=== PATIENT | male | born 2000 | race Caucasian/White ===

== ENCOUNTER 2023-02-12 15:23 | Outpatient (OUT) | payer OTHER, SELFPAY ==
--- NOTE | 2023-02-12 15:40 | CT_ITS ---
The [address] [address] Patient Name: JASPREET HART MRN: [id number] date: 2000 Sex: M Assigned Patient Location: CT Current Patient Location: CT Accession/Order Number: [id number] Exam Date: 02/12/2023 15:40 Report Date: 02/12/2023 16:23 At the request of: MARBELLA DIETZ Procedure: CT abdomen pelvis wo con EXAM: CT abdomen pelvis wo con HISTORY: LOWE ABDOMINAL PAOIN R10.30 COMPARISON: None. TECHNIQUE: Axial CT images were obtained of the abdomen and pelvis without intravenous contrast. Multiplanar reconstructions were performed. ABDOMEN/PELVIS FINDINGS: Lower Chest: Unremarkable. Liver: Normal nonenhanced appearance and contour. Biliary/Gallbladder: Unremarkable. Pancreas: Unremarkable. Spleen: Unremarkable. Adrenal Glands: Unremarkable. Kidneys: Unremarkable. Gastrointestinal/Peritoneum: No acute abnormality. The appendix is unremarkable. No free air or free fluid. Vascular: Unremarkable. Lymph Nodes: No enlarged lymph nodes by CT size criteria. Pelvic Organs: Unremarkable. Bladder: Unremarkable. Bones: No acute osseous abnormality. Soft tissues: Unremarkable. IMPRESSION: 1. No acute abnormality of the abdomen and pelvis. Electronically authenticated by: NILESH PORTER Date: 02/12/2023 16:23
== END 2023-02-12 15:24 | disposition home or self-care (01) ==
LOC: CT 15:28
PROVIDERS: PCP Family Medicine; Visit Provider Physician Assistant
DX: K64.4 Residual hemorrhoidal skin tags (principal); R10.9 Unspecified abdominal pain; R10.30 Lower abdominal pain, unspecified; M95.8 Other specified acquired deformities of musculoskeletal system
CPT/HCPCS: 74176